=== PATIENT | female | born 1950 | race Caucasian/White ===

== ENCOUNTER 2017-08-03 20:42 | Emergency (ER) | payer MEDICARE, OTHER ==
[~2017-08-03] VITALS: Ht 165.1 cm; Wt 77.1 kg
[2017-08-03] MEDS ORDERED: PRILOSEC (20:58)
[2017-08-03] MEDS ORDERED: ASPI81TA31 PO (20:58)
[2017-08-03] MEDS ORDERED: NORVASC (20:58)
[2017-08-03] MEDS ORDERED: DIAZEPAM 2 MG TABLET PO ONE (21:45)
[2017-08-03] MEDS ORDERED: HYDROCODONE/APAP 10-325 MG TABLET PO ONE (21:45)
[2017-08-03] MEDS ORDERED: HYDROCODONE/APAP 10-325 MG TABLET ONE (21:57)
[2017-08-03] MEDS ORDERED: DIAZEPAM 2 MG TABLET ONE (21:58)
--- NOTE | 2017-08-03 22:25 | NUR ---
Patient back to ER from radiology.
[2017-08-03] MEDS ORDERED: ONDANSETRON ODT 4 MG TAB.RAPDIS SL ONE (23:15)
--- NOTE | 2017-08-03 23:18 | NUR ---
Per MD pt stable for discharge. Written and verbal after care instructions given. Patient verbalizes understanding of instructions. Pt. ambulated with slow steady gait out of ER with ride home.
[2017-08-03 23:21] VITALS: BP 146/81
[2017-08-03] MEDS ORDERED: ONDANSETRON ODT 4 MG TAB.RAPDIS ONE (23:26)
== END 2017-08-03 23:22 | disposition home or self-care (01) ==
LOC: ER 20:44
DX: M54.6 Pain in thoracic spine (principal); K21.9 Gastro-esophageal reflux disease without esophagitis; Z79.82 Long term (current) use of aspirin; W01.0XXA Fall on same level from slipping, tripping and stumbling without subsequent striking against object, initial encounter; Y92.89 Other specified places as the place of occurrence of the external cause; Y93.89 Activity, other specified; Y99.8 Other external cause status
CPT/HCPCS: 71101; A4663; Q0162